=== PATIENT | female | born 1940 | race Caucasian/White ===

== ENCOUNTER → 2017-09-01 | Outpatient (CLI) | payer MEDICARE, BC ==
[~2017-09-01] MED LIST: IOPAMIDOL 370 MG/ML 200 ML INFUS..BTL INJ ONE; SODIUM CHLORIDE 0.9% 50ML 100 ML ONE
[2017-09-01 14:03] LABS: BLOOD UREA NITROGEN 9 mg/dL (7-26); BUN/CREATININE RATIO 12 (6-25); CREATININE, SERUM 0.75 mg/dL (0.57-1.11); EST GLOMERULAR FILTRATION RATE > 60 ML/MIN (60-)
--- NOTE | 2017-09-02 07:21 | Diagnostic Imaging Report ---
Exam: Neck CTA History: Evaluate for carotid stenosis, syncope Comparison studies:None Technique: Axial images were obtained from the thoracic inlet. Coronal and sagittal images reconstructed from the axial data. Intravenous contrast: 100 cc of Omnipaque 300. If present, stenosis is calculated utilizing the NASCET method which calculates the degree of stenosis with reference to the normal lumen of the carotid artery distal to the stenosis. Findings: Included aortic arch and major vessels: Patent. The left common carotid artery arises from the right brachycephalic trunk. Mild nonstenotic calcified plaque at the origin of the right subclavian. Common carotid arteries: Patent. No abnormalities. Carotid bulbs: No (0%) stenosis bilaterally. Internal carotid arteries: Patent bilaterally with mild luminal irregularity without significant stenosis. Findings may reflect changes of fibromuscular dysplasia. Mildly tortuous distal left ICA segment. Vertebral arteries: Patent, no abnormalities. The right vertebral artery is dominant. Included intracranial circulation: Mild nonstenotic hard plaque in the left cavernous ICA segment. The intradural V4 segments of the vertebral arteries and basilar artery are patent. Incidental findings: Moderate multilevel degenerative facet arthrosis in the cervical spine. IMPRESSION: 1. Patent carotid and vertebral arteries. 2. No (0%) stenosis at the cervical carotid bulbs. 3. Luminal irregularity in the internal carotid arteries bilaterally without significant stenosis may reflect changes of fibromuscular dysplasia. Signed by: Dr. Obed Barber M.D. on 09/02/2017 7:17 AM
== END ==
LOC: CT 13:10
PROVIDERS: ATTEND Internal Medicine Interventional Cardiology
DX: I65.29 Occlusion and stenosis of unspecified carotid artery (principal)
CPT/HCPCS: 36415; 70498; 82565; 84520; Q9967